=== PATIENT | female | born 1995 | race Caucasian/White ===

== ENCOUNTER 2017-09-06 17:00 | Emergency (ER) | payer OTHER ==
[~2017-09-06] VITALS: Ht 157.5 cm; Wt 74.8 kg
[2017-09-06] MEDS ORDERED: OBSTETRIX EC C1 EACH (17:58)
== END 2017-09-06 22:08 | disposition home or self-care (01) ==
LOC: ER 17:00
DX: O21.0 Mild hyperemesis gravidarum (principal); Z34.01 Encounter for supervision of normal first pregnancy, first trimester

== ENCOUNTER 2017-09-19 21:42 | Emergency (ER) | payer OTHER ==
[~2017-09-19] VITALS: Ht 152.4 cm; Wt 76.7 kg
[~2017-09-19 21:42] MED LIST: OBSTETRIX EC C1 EACH
== END 2017-09-20 14:14 | disposition home or self-care (01) ==
LOC: ER 21:42
DX: O21.1 Hyperemesis gravidarum with metabolic disturbance (principal); O23.41 Unspecified infection of urinary tract in pregnancy, first trimester; Z34.01 Encounter for supervision of normal first pregnancy, first trimester

== ENCOUNTER 2017-12-09 19:32 | Inpatient (IN) | payer OTHER ==
[~2017-12-09] VITALS: Ht 157.5 cm; Wt 75.7 kg
[2017-12-09] MEDS ORDERED: FA-80.8 MG PO (19:50)
[2017-12-09] MEDS ORDERED: ZOFRAN ODT8 MG PO (19:51)
== END 2017-12-13 15:04 | DRG 782 ==
LOC: OBS/DEL 19:32 → LDR 12-10 16:44 → OB/GYN 12-12 09:24
PROVIDERS: Obstetrics & Gynecology
PROC: 4A1HXCZ Monitoring of Products of Conception, Cardiac Rate, External Approach (ICD-10-PCS; 2017-12-10)
PROC: BY4CZZZ Ultrasonography of Second Trimester, Single Fetus (ICD-10-PCS; 2017-12-10)
PROC: BU4CZZZ Ultrasonography of Uterus and Ovaries (ICD-10-PCS; 2017-12-10)
PROC: 0UVC7ZZ Restriction of Cervix, Via Natural or Artificial Opening (ICD-10-PCS; principal; 2017-12-11 07:00)
DX: O34.32 Maternal care for cervical incompetence, second trimester (principal); Z3A.22 22 weeks gestation of pregnancy

== ENCOUNTER 2018-02-14 18:14 | Outpatient (CLI) | payer OTHER ==
[~2018-02-14 18:14] MED LIST changes: +FA-80.8 MG PO; +ZOFRAN ODT8 MG PO
[2018-02-14] MEDS ORDERED: PRENATABS RX T1 EACH PO (18:46)
== END 2018-02-15 10:53 | disposition home or self-care (01) ==
LOC: OBS/DEL 18:14
DX: O47.03 False labor before 37 completed weeks of gestation, third trimester (principal); O34.33 Maternal care for cervical incompetence, third trimester; Z34.03 Encounter for supervision of normal first pregnancy, third trimester

== ENCOUNTER 2018-03-11 21:14 | Outpatient (CLI) | payer OTHER ==
[~2018-03-11 21:14] MED LIST changes: +PRENATABS RX T1 EACH PO
[2018-03-11] MEDS ORDERED: PROCARDIA PO (22:50)
[2018-03-11] MEDS ORDERED: VISTARIL25 MG PO (22:50)
== END 2018-03-12 14:01 | disposition home or self-care (01) ==
LOC: OBS/DEL 21:14
DX: O34.33 Maternal care for cervical incompetence, third trimester (principal); Z34.03 Encounter for supervision of normal first pregnancy, third trimester

== ENCOUNTER 2018-03-21 05:21 | Outpatient (CLI) | payer OTHER ==
[~2018-03-21 05:21] MED LIST changes: +PROCARDIA PO; +VISTARIL25 MG PO
== END 2018-03-21 11:24 | disposition home or self-care (01) ==
LOC: OBS/DEL 05:21
DX: O34.33 Maternal care for cervical incompetence, third trimester (principal); Z34.83 Encounter for supervision of other normal pregnancy, third trimester

== ENCOUNTER 2018-03-24 20:57 | Outpatient (CLI) | payer OTHER | END 2018-03-25 10:48 | disposition home or self-care (01) | LOC: OBS/DEL 20:57 | DX: O26.893 Other specified pregnancy related conditions, third trimester (principal); M54.5 Low back pain; R10.2 Pelvic and perineal pain; Z34.03 Encounter for supervision of normal first pregnancy, third trimester ==

== ENCOUNTER 2018-04-06 18:15 | Inpatient (IN) | payer OTHER ==
[~2018-04-06] VITALS: Ht 157.5 cm; Wt 81.6 kg
== END 2018-04-10 12:50 | disposition home or self-care (01) | DRG 788 ==
LOC: LDR 18:15 → OB/GYN 18:15 → O/R 18:15 → OB/GYN 04-07 21:35
PROVIDERS: ADMIT Obstetrics & Gynecology
PROC: 3E0P7VZ Introduction of Hormone into Female Reproductive, Via Natural or Artificial Opening (ICD-10-PCS; 2018-04-06)
PROC: 3E033VJ Introduction of Other Hormone into Peripheral Vein, Percutaneous Approach (ICD-10-PCS; 2018-04-06)
PROC: 4A1HXCZ Monitoring of Products of Conception, Cardiac Rate, External Approach (ICD-10-PCS; 2018-04-06)
PROC: 10D00Z1 Extraction of Products of Conception, Low, Open Approach (ICD-10-PCS; principal; 2018-04-07 20:00)
DX: O61.0 Failed medical induction of labor (principal); Z3A.39 39 weeks gestation of pregnancy; Z37.0 Single live birth

== ENCOUNTER → 2018-11-04 | Emergency (ER) | payer OTHER ==
[~2018-11-04] VITALS: Ht 157.5 cm; Wt 73.9 kg
[~2018-11-04] MED LIST changes: +PRENATAL TABLE1 EAC4
== END | disposition left against medical advice (07) ==
LOC: ER 14:56
DX: Z53.20 Procedure and treatment not carried out because of patient's decision for unspecified reasons (principal)

== ENCOUNTER 2020-01-29 16:39 | Outpatient (CLI) | payer OTHER | END 2020-01-29 21:12 | disposition home or self-care (01) | LOC: OBS/DEL 16:39 | PROVIDERS: ATTEND Obstetrics & Gynecology | DX: O26.892 Other specified pregnancy related conditions, second trimester (principal); R10.2 Pelvic and perineal pain; O34.32 Maternal care for cervical incompetence, second trimester ==

== ENCOUNTER 2020-02-12 05:34 | Day surgery (SDC) | payer OTHER ==
[~2020-02-12 05:34] MED LIST changes: +CIRUELAX; +ZOFRAN8 MG
[2020-02-12] MEDS ORDERED: INDOMETHACIN50 MG PO (08:24)
== END 2020-02-12 11:35 | disposition home or self-care (01) ==
LOC: CIR.AMB 05:34
PROVIDERS: ATTEND Obstetrics & Gynecology
DX: O34.32 Maternal care for cervical incompetence, second trimester (principal); Z20.828 Contact with and (suspected) exposure to other viral communicable diseases

== ENCOUNTER 2020-04-29 17:10 | Inpatient (IN) | payer OTHER ==
[~2020-04-29] VITALS: Ht 157.5 cm; Wt 81.6 kg
[~2020-04-29 17:10] MED LIST changes: +INDOMETHACIN50 MG PO
[2020-05-02] MEDS ORDERED: AMOX1TAB5 PO (07:13)
== END 2020-05-02 11:13 | disposition home or self-care (01) | DRG 831 ==
LOC: OBS/DEL 17:10 → LDR 04-30 06:54 → OB/GYN 04-30 15:20
PROVIDERS: ADMIT Obstetrics & Gynecology; ATTEND Obstetrics & Gynecology
PROC: 4A1HXFZ Monitoring of Products of Conception, Cardiac Rhythm, External Approach (ICD-10-PCS; principal; 2020-04-30)
PROC: BY4CZZZ Ultrasonography of Second Trimester, Single Fetus (ICD-10-PCS; 2020-04-30)
PROC: BT4JZZZ Ultrasonography of Kidneys and Bladder (ICD-10-PCS; 2020-04-30)
DX: O23.42 Unspecified infection of urinary tract in pregnancy, second trimester (principal); O34.32 Maternal care for cervical incompetence, second trimester; N20.9 Urinary calculus, unspecified; R31.9 Hematuria, unspecified; O21.0 Mild hyperemesis gravidarum; Z3A.27 27 weeks gestation of pregnancy

== ENCOUNTER 2020-06-13 15:32 | Inpatient (IN) | payer OTHER ==
[~2020-06-13] VITALS: Ht 157.5 cm; Wt 83.9 kg
[~2020-06-13 15:32] MED LIST changes: +AMOX1TAB5 PO
[2020-06-14] MEDS ORDERED: PRENATAL CAPLE1 EAC1 PO (18:28)
[2020-06-14] MEDS ORDERED: ZOFRAN8 MG PO (18:28)
[2020-06-18] MEDS ORDERED: NIFEDIPINE10 MG PO (06:52)
[2020-06-18] MEDS ORDERED: HYDROXYZINE PAM50 MG PO (06:52)
== END 2020-06-18 09:36 | disposition home or self-care (01) | DRG 833 ==
LOC: OBS/DEL 15:32 → OB/GYN 06-14 16:24 → LDR 06-14 16:24 → OB/GYN 06-15 07:55
PROVIDERS: ADMIT Obstetrics & Gynecology; ATTEND Obstetrics & Gynecology
PROC: 4A1HXFZ Monitoring of Products of Conception, Cardiac Rhythm, External Approach (ICD-10-PCS; principal; 2020-06-14)
DX: O47.03 False labor before 37 completed weeks of gestation, third trimester (principal); Z3A.33 33 weeks gestation of pregnancy; Z20.822 Contact with and (suspected) exposure to COVID-19

== ENCOUNTER 2020-07-08 10:38 | Inpatient (IN) | payer OTHER ==
[~2020-07-08] VITALS: Ht 157.5 cm; Wt 2.3 kg
[~2020-07-08 10:38] MED LIST changes: +HYDROXYZINE PAM50 MG PO; +NIFEDIPINE10 MG PO; +PRENATAL CAPLE1 EAC1 PO; +ZOFRAN8 MG PO
[2020-07-08] MEDS ORDERED: VISTARIL25 MG (14:14)
== END 2020-07-11 13:42 | disposition home or self-care (01) | DRG 785 ==
LOC: LDR 10:38 → OB/GYN 10:38 → O/R 13:29 → OB/GYN 15:17
PROVIDERS: ADMIT Obstetrics & Gynecology; ATTEND Obstetrics & Gynecology
PROC: 0UB70ZZ Excision of Bilateral Fallopian Tubes, Open Approach (ICD-10-PCS; 2020-07-08)
PROC: 4A1HXFZ Monitoring of Products of Conception, Cardiac Rhythm, External Approach (ICD-10-PCS; 2020-07-08)
PROC: 10D00Z1 Extraction of Products of Conception, Low, Open Approach (ICD-10-PCS; principal; 2020-07-08 13:00)
DX: O65.5 Obstructed labor due to abnormality of maternal pelvic organs (principal); O34.211 Maternal care for low transverse scar from previous cesarean delivery; Z30.2 Encounter for sterilization; Z3A.37 37 weeks gestation of pregnancy; Z37.0 Single live birth